=== PATIENT | female | born 1975 | race Caucasian/White ===

== ENCOUNTER → 2017-11-25 | Outpatient (CLI) | payer OTHER ==
[~2017-11-25] MED LIST: TAB-TAB PO
== END ==
LOC: HRSP 11:02
PROVIDERS: ATTEND Internal Medicine Sleep Medicine
DX: R06.89 Other abnormalities of breathing (principal)
CPT/HCPCS: 94060; 94726; 94729

== ENCOUNTER 2018-04-15 16:34 | Emergency (ER) | payer OTHER ==
[2018-04-15 16:40] VITALS: BP 121/69; PULSE 50; RESP 20; TEMP 97.8; O2SAT 100
[2018-04-15] MEDS ORDERED: SODIUM CHLOR 0.9% 1000 ML INJ 1,000 ML IV ONE (17:19)
--- NOTE | 2018-04-15 17:26 | PD ---
HPI Chief Complaint: Headache Time Seen by Provider: 17:17 Travel History International Travel<30 days: No Contact w/Intl Traveler<30days: No Traveled to known affect area: No History of Present Illness HPI 42-year-old female presents with frontal headache and nausea over the past day. She states she tried sinus medication and Motrin without relief. She denies any other concurrent complaints. She denies specific modifying factors. Quality is pressure. Severity is moderate. She denies recurrent history of this. She denies any trauma. She denies any thunderclap onset. She denies possibility of . PFSH Past Medical History Cancer: No Cardiovascular Problems: No Diabetes: No Endocrine: No Gastrointestinal Disorders: No Genitourinary: No Hepatitis: No Hiatal Hernia: No Immune Disorder: No Medical other: No Musculoskeletal: No Neurologic: No Psychiatric: No Reproductive: No Respiratory: No Integumentary: No Thyroid Disease: No Influenza Vaccination: Yes ?: Not LMP: APPROX FOUR WEEKS AGO Tubal Ligation: Yes Past Surgical History AICD: No Gynecologic Surgery: Yes (TUBAL LIG.) Joint Replacement: No Pacemaker: No Other Surgery: Yes Social History Alcohol Use: Yes (Occassionaly) Tobacco Use: No Substance Use: No Allergies-Medications (Allergen,Severity, Reaction): Coded Allergies: No Known Allergies (Verified , 02/28/13) Reported Meds & Prescriptions Reported Meds & Active Scripts Active Review of Systems Except as stated in HPI: all other systems reviewed are Neg Physical Exam Narrative GENERAL: 42-year-old female in no apparent distress SKIN: Focused skin assessment warm/dry. HEAD: Atraumatic. Normocephalic. EYES: Pupils equal and round. No scleral icterus. No injection or drainage. ENT: No nasal bleeding or discharge. Mucous membranes pink and moist. NECK: Trachea midline. No JVD. No meningeal signs CARDIOVASCULAR: Regular rate and rhythm. No murmur appreciated. RESPIRATORY: No accessory muscle use. Clear to auscultation. Breath sounds equal bilaterally. GASTROINTESTINAL: Abdomen soft, non-tender, nondistended. Hepatic and splenic margins not palpable. MUSCULOSKELETAL: No obvious deformities. No clubbing. No cyanosis. No edema. NEUROLOGICAL: Awake and alert. No obvious cranial nerve deficits. Motor grossly within normal limits. Normal speech. PSYCHIATRIC: Appropriate mood and affect; insight and judgment normal. Data Data Last Documented VS Vital Signs Date Time Temp Pulse Resp B/P (MAP) Pulse Ox O2 Delivery O2 Flow Rate FiO2 04/15/18 18:53 58 18 89/64 (72) 100 Room Air 04/15/18 16:[address] Brain W/O Iv Contrast(Rout) (04/15/18 17:19) Ecg Monitoring (04/15/18 17:19) Iv Access Insert/Monitor (04/15/18 17:19) Oximetry (04/15/18 17:19) Sodium Chloride 0.9% Flush (Ns Flush) (04/15/18 17:30) Prochlorperazine Inj (Compazine Inj) (04/15/18 17:30) Diphenhydramine Inj (Benadryl Inj) (04/15/18 17:30) Sodium Chlor 0.9% 1000 Ml Inj (Ns 1000 M (04/15/18 17:19) Ed Discharge Order (04/15/18 18:54) MDM Medical Decision Making Medical Screen Exam Complete: Yes Emergency Medical Condition: Yes Medical Record Reviewed: Yes (Past history confirmed) Interpretation(s) ct head no acute Differential Diagnosis Tension, migraine, cluster Narrative Course Will dose with Compazine, Benadryl, fluids and check CT brain given no prior imaging and reevaluate ct no acute, patient denies any new complaints and states that they are feeling better. Patient happy with care, all questions answered. Patient knows that follow up is incumbent on them and to return to the emergency room immediately if new or worsening symptoms develop. Patient given strict return precautions, vitals reviewed and are normal, agrees to further workup as an outpatient. Diagnosis Primary Impression: Cephalgia Qualified Codes: R51 - Headache Patient Instructions: General Instructions Additional Instructions: return as needed, alternate tylenol and motrin, follow with primary this week Med/Other Pt SpecificInfo: No Change to Meds Disposition: 01 DISCHARGE HOME Condition: Stable Marta Kumari MD Apr 15, 2018 17:26
[2018-04-15] MEDS ORDERED: SODIUM CHLORIDE 0.9% FLUSH 10 ML FLUSH IVF PRN (17:30)
[2018-04-15] MEDS ORDERED: PROCHLORPERAZINE INJ 10 MG/2 ML VIAL IVP ONE (17:30)
[2018-04-15] MEDS ORDERED: diphenhydrAMINE HCL 50 MG/ML VIAL IVP ONE (17:30)
[2018-04-15 17:44] VITALS: RESP 16; O2SAT 100
[2018-04-15 17:45] VITALS: BP 123/68; PULSE 51; RESP 16; O2SAT 100
--- NOTE | 2018-04-15 18:03 | RADRPT ---
EXAM DATE: 04/15/2018 5:53 PM EDT AGE/SEX: 42 years / Female INDICATIONS: Cephalgia. CLINICAL DATA: This is the patient's initial encounter. Patient reports that signs and symptoms have been present for 2 days and indicates a pain score of 8/10. MEDICAL/SURGICAL HISTORY: None. Tubal ligation. RADIATION DOSE: 49.16 CTDI (mGy) COMPARISON: No prior exams available for comparison. TECHNIQUE: CT of the head without contrast. Using automated exposure control and adjustment of the mA and/or kV according to patient size, radiation dose was kept as low as reasonably achievable to ob tain optimal diagnostic quality images. FINDINGS: Cerebrum: The ventricles are normal for age. No evidence of midline shift, mass lesion, hemorrhage or acute infarction. No extraaxial fluid collections are seen. Posterior Fossa: The cerebellum and brainstem are intact. The 4th ventricle is midline. The cerebe llopontine angle is unremarkable. Extracranial: The visualized portion of the orbits is intact. Skull: The calvaria is intact. No evidence of skull fracture. CONCLUSION: 1. No acute intracranial abnormalities. Electronically signed by: James Valente MD 04/15/2018 6:02 PM EDT
[2018-04-15 18:53] VITALS: BP 89/64; PULSE 58; RESP 18; O2SAT 100
== END 2018-04-15 19:04 | disposition home or self-care (01) ==
LOC: PHED 16:34
DX: R51 Headache (principal); R11.0 Nausea
CPT/HCPCS: 70450; 96361; 96374; 96375; 99284; J0780; J1200; J7030